=== PATIENT | male | born 1995 | race American Indian/Alaskan Native ===

== ENCOUNTER 2018-06-03 17:12 | Inpatient (IN) | payer OTHER ==
[2018-06-03 18:42] LABS: Hematocrit 50.8 % (35.5-45.6); Hemoglobin 16.6 gm/dl (11.8-15.2); Mean Corpuscular HGB Conc 33 % (32-34); Mean Corpuscular Hemoglobin 28 pg (28-32); Mean Corpuscular Volume 86 fl (84-94); Platelet Count 294 K/mm3 (140-440); Red Blood Count 5.89 M/mm3 (3.65-5.03); Red Cell Distribution Width 13.9 % (13.2-15.2)
[2018-06-03 18:58] LABS: BUN/Creatinine Ratio 13; Blood Urea Nitrogen 10 mg/dL (9-20); Calcium 10.1 mg/dL (8.4-10.2); Hemolysis Index 10
[2018-06-03] MEDS ORDERED: ZOFRAN IV ONE (23:16)
[2018-06-03] MEDS ORDERED: NACL 0.9% 1000 ML 1,000 ML IV ONE (23:16)
[2018-06-03] MEDS ORDERED: SUBLIMAZE IV ONE (23:16)
--- NOTE | 2018-06-03 23:17 | Emergency Department Report ---
ED Abdominal Pain HPI - General Chief Complaint: Abdominal Pain Stated Complaint: LOWER ABD PAIN Time Seen by Provider: 06/03/18 23:10 Source: patient, RN notes reviewed Mode of arrival: Ambulatory Limitations: No Limitations - History of Present Illness Initial Comments: This is a pleasant 22-year-old gentleman who was not known to this provider previously, who presents to the ER with a complaint of nontraumatic right lower quadrant abdominal pain. The patient has been present for 2-3 days. It is sharp, is radiating to the umbilicus, increases with palpation and decreases with rest. Denies urinary symptoms, and denies testicular pain. Reports nausea and heaving. Denies other complaints. Reports never having had pain like this before. MD Complaint: abdominal pain -: Gradual Radiation: RLQ, suprapubic Migration to: periumbilical Severity: moderate Quality: aching Consistency: intermittent Improves With: rest Worsens With: movement Associated Symptoms: denies other symptoms, nausea - Related Data Allergies Allergy/AdvReac Type Severity Reaction Status Date / Time No Known Allergies Allergy Unverified 06/03/18 17:27 ED Review of Systems ROS: Stated complaint: LOWER ABD PAIN Other details as noted in HPI Comment: All other systems reviewed and negative Constitutional: denies: fever Gastrointestinal: abdominal pain Genitourinary: denies: testicular pain ED Past Medical Hx - Past Medical History Previous Medical History?: No - Surgical History Past Surgical History?: No - Social History Smoking Status: Never Smoker Substance Use Type: None ED Physical Exam - General Limitations: No Limitations General appearance: alert, in no apparent distress - Head Head exam: Present: atraumatic, normocephalic - Eye Eye exam: Present: normal appearance, EOMI. Absent: nystagmus - ENT ENT exam: Present: normal exam, normal orophraynx, mucous membranes moist, normal external ear exam - Neck Neck exam: Present: normal inspection, full ROM. Absent: tenderness, meningismus - Respiratory Respiratory exam: Present: normal lung sounds bilaterally. Absent: respiratory distress - Cardiovascular Cardiovascular Exam: Present: regular rate, normal rhythm, normal heart sounds. Absent: bradycardia, tachycardia, irregular rhythm, systolic murmur, diastolic murmur, rubs, gallop - GI/Abdominal GI/Abdominal exam: Present: soft, tenderness (patient is tender and peritoneal, with voluntary guarding in the right lower quadrant), guarding. Absent: distended, pulsatile mass - Rectal Rectal exam: Present: deferred - exam: Present: normal inspection. Absent: testicular tenderness External exam: Present: normal external exam, other (there is no testicular tenderness. There is normal testicular lie bilaterally. There is normal cremasteric reflex bilaterally.) - Extremities Exam Extremities exam: Present: normal inspection, full ROM, normal capillary refill , other (2+ pulses noted in the bilateral upper, lower extremities. Compartments soft. No long bony tenderness. The pelvis is stable.). Absent: tenderness, pedal edema, joint swelling, calf tenderness - Back Exam Back exam: Present: normal inspection, full ROM. Absent: tenderness, CVA tenderness (R), paraspinal tenderness, vertebral tenderness - Neurological Exam Neurological exam: Present: alert, oriented X3, CN II-XII intact, other ( Extraocular movements intact. Tongue midline. No facial droop. Facial sensation intact to light touch in the V1, V2, V3 distribution bilaterally. 5 and 5 strength in 4 extremities.. Sensation is intact to light touch in 4 extremities.). Absent: motor sensory deficit - Psychiatric Psychiatric exam: Present: anxious - Skin Skin exam: Present: warm, dry, intact, normal color. Absent: rash ED Course Vital Signs 06/03/18 06/03/18 17:27 23:03 Temperature 98.2 F 98.1 F Pulse Rate 99 H 96 H Respiratory 18 18 Rate Blood Pressure 138/69 Blood Pressure 137/81 [Left] O2 Sat by Pulse 99 99 Oximetry - Reevaluation(s) Reevaluation #1: 06/03/18 23:36 Differential diagnosis, including but not limited to: Appendicitis, renal colic , inflammatory bowel disease Assessment and plan: 22-year-old male with right lower quadrant pain which is migratory and he is quite tender. I suspicion for appendicitis. He will be given IV fluids, pain medication, nausea medication. CT scan of the abdomen and pelvis is pending at this time. Reevaluation #2: 06/04/18 01:23 As expected, CT scan demonstrates appendicitis without perforation. Patient continues to decline pain medication at this time. Extensive discussion had with the patient regarding significance of diagnosis and need for admission for IV antibiotics and probable operative intervention. Patient is amenable to all of this. The general surgeon implementation specialist payroll is paged to arrange admission. Reevaluation #3: 06/04/18 01:32 Discussed with the general surgeon on-call, Dr. Iesha Osborn, who requests medical team to admit the patient, reports she will follow in consultation, and arrange surgical intervention early in the morning. Hospital physician is paged to arrange admission. Reevaluation #4: 06/04/18 01:42 Dr Werner accepted the patient to the medical service ED Medical Decision Making - Lab Data Result diagrams: 06/03/18 18:21 06/03/18 18:21 Vital Signs 06/03/18 06/03/18 17:27 23:03 Temperature 98.2 F 98.1 F Pulse Rate 99 H 96 H Respiratory 18 18 Rate Blood Pressure 138/69 Blood Pressure 137/81 [Left] O2 Sat by Pulse 99 99 Oximetry Lab Results 06/03/18 06/03/18 06/03/18 Range/Units 18:21 18:21 23:09 WBC 10.3 (4.5-11.0) K/mm3 RBC 5.89 H (3.65-5.03) M/mm3 Hgb 16.6 H (11.8-15.2) gm/dl Hct 50.8 H (35.5-45.6) % MCV 86 (84-94) fl MCH 28 (28-32) pg MCHC 33 (32-34) % RDW 13.9 (13.2-15.2) % Plt Count 294 (140-440) K/mm3 Sodium 141 (137-145) mmol/L Potassium 4.1 (3.6-5.0) mmol/L Chloride 99.1 (98-107) mmol/L Carbon Dioxide 25 (22-30) mmol/L Anion Gap 21 mmol/L BUN 10 (9-20) mg/dL Creatinine 0.8 (0.8-1.5) mg/dL Estimated GFR > 60 ml/min BUN/Creatinine Ratio 13 % Glucose 93 (75-100) mg/dL Calcium 10.1 (8.4-10.2) mg/dL Urine Color Yellow (Yellow) Urine Turbidity Clear (Clear) Urine pH 6.0 (5.0-7.0) Ur Specific [place] 1.032 H (1.003-1.030) Urine Protein 30 mg/dl (Negative) mg/dL Urine Glucose (UA) Neg (Negative) mg/dL Urine Ketones 20 (Negative) mg/dL Urine Blood Neg (Negative) Urine Nitrite Neg (Negative) Urine Bilirubin Neg (Negative) Urine Urobilinogen 2.0 (<2.0) mg/dL Ur Leukocyte Esterase Neg (Negative) Urine WBC (Auto) 1.0 (0.0-6.0) /HPF Urine RBC (Auto) 12.0 (0.0-6.0) /HPF Urine Mucus 3+ /HPF - Radiology Data Radiology results: report reviewed, image reviewed Critical care attestation.: If time is entered above; I have spent that time in minutes in the direct care of this critically ill patient, excluding procedure time. ED Disposition Clinical Impression: Acute appendicitis Disposition: 09 OP ADMIT IP TO THIS HOSP Is pt being admited?: Yes Condition: Good Referrals: PRIMARY CARE, [Primary Care Provider] - 3-5 Days
[2018-06-03 23:28] LABS: Bilirubin,Urine NEG (Negative); Blood,Urine NEG (Negative); Color,Urine Yellow (Yellow); Mucus,Urine 3+ /HPF
--- NOTE | 2018-06-04 01:16 | Cat Scan Report ---
FINAL REPORT EXAM: CT ABDOMEN PELVIS W CON HISTORY: rlq abd pain TECHNIQUE: Routine axial imaging was obtained of the abdomen and pelvis following the intravenous injection of 100 cc of Omnipaque 350. Delayed imaging was obtained through the kidneys ureters and bladder. Sagittal coronal reconstructions were reviewed. FINDINGS: The lung bases are clear. Pleural fluid is not seen. The liver, gallbladder, biliary tree, pancreas, spleen, and adrenal glands appear normal. The kidneys enhance normally. There is no evidence hydronephrosis. The abdominal aorta and vascular structures enhance normally. The bowel loops are normal in caliber and course. There is a nonspecific 2 cm calcification in the transverse colon. The bowel loops otherwise are unremarkable. There is fusiform enlargement of the appendix measuring 16.6 mm in diameter with periappendiceal edema compatible with acute appendicitis. There is no evidence of perforation or abscess. There minimal free fluid in the deep pelvis. The prostate gland and bladder appear normal. The skeletal structures appear well maintained. IMPRESSION: Acute appendicitis. No evidence of perforation or abscess. Minimal free fluid in the deep pelvis.
[2018-06-04] MEDS ORDERED: ZOSYN/NS 4.5GM/100ML 4.5 GM/100 ML VIAL IV ONE (01:23)
[2018-06-04] MEDS ORDERED: ZOFRAN IV PRN (02:35)
[2018-06-04] MEDS ORDERED: TYLENOL PO PRN (02:35)
[2018-06-04] MEDS ORDERED: SODIUM CHLORIDE FLUSH SYRINGE 10 ML IV PRN (02:35)
--- NOTE | 2018-06-04 05:08 | History and Physical Report ---
History of Present Illness Date of examination: 06/04/18 Date of admission: 06/04/18 02:35 History of present illness: 89year-old man with a no medical history comes to emergency room with complaint of abdominal pain located in the right lower quadrant that started 2 weeks ago. he described the pain as sharp, constant, intensity 7/10, radiating to the mid abdomen and also associated with abdominal cramping, cannot identify exacerbating or relieving factors. Admits to nausea vomiting, no fever Review of systems Constitutional: no weight loss, chills, fever Ears, eyes, nose, mouth and throat: no nasal congestion, no nasal discharge, no sinus pressure, no vision change, no red eye. Neck: No neck pain or rigidity. Cardiovascular: no chest pain, palpitations Respiratory: no cough, shortness of breath Gastrointestinal: no hematochezia Genitourinary : no frequency , no hematuria Musculoskeletal: no joint swelling or muscle ache Integumentary: no rash, no pruritis Neurological: no parathesias, no numbness, no focal weakness Endocrine: no cold or heat intolerance, no polyuria or polydipsia Hematologic/Lymphatic: no easy bruising, no easy bleeding, no gland swelling Allergic/Immunologic: no urticaria, no angioedema PAST MEDICAL HISTORY none PAST SURGICAL HISTORY: none SOCIAL HISTORY: No alcohol, no drugs, tobacco FAMILY HISTORY: Hypertension Medications and Allergies Allergies Allergy/AdvReac Type Severity Reaction Status Date / Time No Known Allergies Allergy Unverified 06/03/18 17:27 Active Meds: Active Medications Acetaminophen (Tylenol) 650 mg PO Q4H PRN PRN Reason: Pain MILD(1-3)/Fever >100.5/PATEL Enoxaparin Sodium (Lovenox) 40 mg SUB-Q QDAY KRYSTAL Sodium Chloride (Nacl 0.9% 1000 Ml) 1,000 mls @ 100 mls/hr IV DIRECT KRYSTAL Morphine Sulfate (Morphine) 2 mg IV Q4H PRN PRN Reason: Pain, Moderate (4-6) Ondansetron HCl (Zofran) 4 mg IV Q4H PRN PRN Reason: Nausea And Vomiting Sodium Chloride (Sodium Chloride Flush Syringe 10 Ml) 10 ml IV BID KRYSTAL Sodium Chloride (Sodium Chloride Flush Syringe 10 Ml) 10 ml IV PRN PRN PRN Reason: LINE FLUSH Exam - Physical Exam Narrative exam: Gen. appearance: Patient lying in bed, no apparent distress HEENT: Normocephalic, atraumatic, pupils equally round and reactive to light, extraocular movement intact, and no sclericterus,. No JVD or thyromegaly or nodule,neck supple, no carotid bruit ,mucous membranes moist, no exudate or erythema Heart: S1, S2, regular rate and rhythm Lungs: Clear bilaterally, breathing comfortable Abdomen: Positive bowel sounds, tender in the right lower quadrant, nondistended , no organomegaly Extremity:no edema cyanosis, clubbing Skin: no rash, dry, warm Neuro: Oriented 3, cranial nerves II-12 intact, speech is fluent, motor and sensory intact - Constitutional Vitals: Temp Pulse Resp BP Pulse Ox 98.1 F 96 H 18 137/81 99 06/03/18 23:03 06/03/18 23:03 06/03/18 23:03 06/03/18 23:03 06/03/18 23:03 Results - Labs CBC & Chem 7: 06/03/18 18:21 06/03/18 18:21 Labs: Abnormal lab results 06/03/18 06/03/18 Range/Units 18:21 23:09 RBC 5.89 H (3.65-5.03) M/mm3 Hgb 16.6 H (11.8-15.2) gm/dl Hct 50.8 H (35.5-45.6) % Ur Specific [place] 1.032 H (1.003-1.030) Assessment and Plan Assessment Acute appendicitis Plan Admit to medicine Nothing by mouth, IV fluids, IV Zosyn, IV pain medication Consults surgery, DVT prophylaxis
[2018-06-04] MEDS: NACL 0.9% 1000 ML 1,000 ML IV SCH (06:28)
--- NOTE | 2018-06-04 09:48 | Consultation ---
History of Present Illness Consult date: 06/04/18 Chief complaint: abdominal pain, anorexia - History of present illness History of present illness: 22 yo M with no PMHx presents with c/o RLQ pain for several weeks. It has been dull and has not limited the patients everyday activity or eating. However, it has intensified in the last 24 hours, is sharp, and severe. It radiates from the RLQ to the mid abdomen. Pain has improved since being in the hospital. No f/ c, cp, sob, n/v. He has not had a very good appetite over the last week or so. No dysuria. Last meal was >24 hours ago. No sick contacts. Patient's mother and aunt at bedside. Past History Past Medical History: No medical history Past Surgical History: No surgical history Social history: no significant social history Family history: no significant family history Medications and Allergies Allergies Allergy/AdvReac Type Severity Reaction Status Date / Time No Known Allergies Allergy Unverified 06/03/18 17:27 Active Meds: Active Medications Acetaminophen (Tylenol) 650 mg PO Q4H PRN PRN Reason: Pain MILD(1-3)/Fever >100.5/PATEL Enoxaparin Sodium (Lovenox) 40 mg SUB-Q QDAY KRYSTAL Sodium Chloride (Nacl 0.9% 1000 Ml) 1,000 mls @ 100 mls/hr IV DIRECT KRYSTAL Last Admin: 06/04/18 06:28 Dose: 100 mls/hr Morphine Sulfate (Morphine) 2 mg IV Q4H PRN PRN Reason: Pain, Moderate (4-6) Ondansetron HCl (Zofran) 4 mg IV Q4H PRN PRN Reason: Nausea And Vomiting Sodium Chloride (Sodium Chloride Flush Syringe 10 Ml) 10 ml IV BID KRYSTAL Sodium Chloride (Sodium Chloride Flush Syringe 10 Ml) 10 ml IV PRN PRN PRN Reason: LINE FLUSH Review of Systems All systems: negative (10 pt ROS performed and negative except for that listed in HPI) Exam Vital Signs Temp Pulse Resp BP Pulse Ox 98.2 F 99 H 18 138/69 99 06/03/18 17:27 06/03/18 17:27 06/03/18 17:27 06/03/18 17:27 06/03/18 17:27 Narrative exam: Gen: AAOx3. NAD. well nourished ENT: no scleral icterus or conjunctival pallor CV: S1, S2+, no m/r/g Resp: CTAB, no w/r/r Abd: soft, ND, + RLQ TTP with guarding. No rebound or rigidity Ext; no c/c/e Results - Labs 06/03/18 18:21 06/03/18 18:21 Abnormal lab results 06/03/18 06/03/18 Range/Units 18:21 23:09 RBC 5.89 H (3.65-5.03) M/mm3 Hgb 16.6 H (11.8-15.2) gm/dl Hct 50.8 H (35.5-45.6) % Ur Specific [place] 1.032 H (1.003-1.030) Diabetes panel 06/03/18 Range/Units 18:21 Sodium 141 (137-145) mmol/L Potassium 4.1 (3.6-5.0) mmol/L Chloride 99.1 (98-107) mmol/L Carbon Dioxide 25 (22-30) mmol/L BUN 10 (9-20) mg/dL Creatinine 0.8 (0.8-1.5) mg/dL Glucose 93 (75-100) mg/dL Calcium 10.1 (8.4-10.2) mg/dL Calcium panel 06/03/18 Range/Units 18:21 Calcium 10.1 (8.4-10.2) mg/dL Pituitary panel 06/03/18 Range/Units 18:21 Sodium 141 (137-145) mmol/L Potassium 4.1 (3.6-5.0) mmol/L Chloride 99.1 (98-107) mmol/L Carbon Dioxide 25 (22-30) mmol/L BUN 10 (9-20) mg/dL Creatinine 0.8 (0.8-1.5) mg/dL Glucose 93 (75-100) mg/dL Calcium 10.1 (8.4-10.2) mg/dL Adrenal panel 06/03/18 Range/Units 18:21 Sodium 141 (137-145) mmol/L Potassium 4.1 (3.6-5.0) mmol/L Chloride 99.1 (98-107) mmol/L Carbon Dioxide 25 (22-30) mmol/L BUN 10 (9-20) mg/dL Creatinine 0.8 (0.8-1.5) mg/dL Glucose 93 (75-100) mg/dL Calcium 10.1 (8.4-10.2) mg/dL - Imaging CT scan - abdomen: report reviewed, image reviewed CT scan - pelvis: report reviewed, image reviewed Assessment and Plan 22yo M with acute appendicitis, dehydration Plan: 1. NPO 2. IVF - increase to NS@125cc/hr 3. IV abx - one dose zosyn given in ER, will continue zosyn IV 4. DVT ppx - on lovenox 5. prn pain control - morphine IV 6. For OR today for laparoscopic, possible open, appendectomy. I discussed all risks, benefits, and alternatives to surgery with the patient and his family at the bedside. All questions were answered and consent obtained. Thank you for this consultation, please call with questions or concerns.
[2018-06-04] MEDS ORDERED: LOVENOX SUB-Q SCH ×2 (10:00→22:00)
[2018-06-04] MEDS ORDERED: VERSED IV NR (14:32)
[2018-06-04] MEDS ORDERED: LACTATED RINGERS 1,000 ML IV SCH (14:32)
[2018-06-04] MEDS ORDERED: PEPCID IV NR (14:34)
[2018-06-04] MEDS ORDERED: PEPCID IV ONE (14:37)
[2018-06-04] MEDS ORDERED: DILAUDID ONE (15:14)
[2018-06-04] MEDS ORDERED: DIPRIVAN 10 MG/ML IV ONE (15:15)
[2018-06-04] MEDS ORDERED: XYLOCAINE MPF 2% ONE (15:16)
[2018-06-04] MEDS ORDERED: ZEMURON IV ONE (15:16)
[2018-06-04] MEDS ORDERED: QUELICIN ONE (15:16)
[2018-06-04] MEDS ORDERED: MARCAINE 0.25% INFILTRATI ONE ×2 (15:24→15:39)
[2018-06-04] MEDS ORDERED: TORADOL ONE (15:51)
[2018-06-04] MEDS ORDERED: ZOFRAN ONE (15:51)
[2018-06-04] MEDS ORDERED: BLOXIVERZ ONE (15:51)
[2018-06-04] MEDS ORDERED: DECADRON ONE (15:51)
[2018-06-04] MEDS ORDERED: ROBINUL ONE (15:51)
[2018-06-04] MEDS ORDERED: NORCO 5/325 PO PRN (17:00)
--- NOTE | 2018-06-04 17:12 | Operative Report ---
Operative Report Operative Report: Date of operation: 06/04/18 Preoperative diagnosis: acute appendicitis Postoperative diagnosis: acute appendicitis Procedure performed: Laparoscopic appendectomy Surgeon: Irasema Osborn DO Anesthesia: GETA, local Findings: very long thickened and dilated appendix, retrocecal EBL: 20cc Specimen: appendix Disposition/Condition: stable to PACU HPI and indication: 22 yo M presented to ER with RLQ pain, anorexia. He was found to have acute appendicitis on CT scan. He was started on antibiotics, IVF , and pain medication. Appendectomy was recommended. All risks, benefits, and alternatives of surgery were discussed with the patient, all questions answered , and consent signed. Procedure in detail: Patient was identified in the preop area and taken back to the OR and placed on the OR table in supine position. After anesthesia was induced a jacobs catheter was placed by the circulating nurse in sterile fashion. The abdomen was prepped and draped in sterile fashion and a time out was performed. Local anesthetic 0.25% Marcaine was infilitrated into all skin incision sites. A supraumbilical incision was made using a 11 blade and veress needle inserted through this incision. The positioning of the veress needle was confirmed using the saline drop test. The abdomen was then insufflated to 15mmHg. The veress needle was withdrawn and a 5mm Optiview trocar was placed. The abdomen was inspected and no underlying injury to the abdominal structures was identified. A 5mm trocar suprapubic and a 12 mm LLQ trocar were placed under direct visualization. The ileocecal junction was identified. The cecum was rotated medially and the appendix was visualized and was in the retrocecal position. The appendix extended from the RLQ to the RUQ and was thickened, dilated, and inflamed. It was adhered to the the lateral abdominal wall with thickened peritoneal adhesions. These adhesions were taken down using the harmonic scalpel until the mesentery of the appendix was identified. The appendix was retracted towards the abdominal wall and the mesentery ligated using the harmonic scalpel. Dense adhesions from the lateral abdominal wall and retroperitoneum to the base of the appendix and cecum were carefully dissected using the harmonic scalpel until the base of the appendix was clearly identified. The base of the appendix was transected using an ethicon flex stapler 45mm white load. The appendix was placed into an endocatch bag and removed via the 12 mm port. This was passed off the table as specimen. The staple line and mesentery were then inspected and no bleeding visualized. The wound bed was meticulously inspected and no bleeding seen. The remainder of the abdomen was inspected and was unremarkable. The 12 mm port fascia was closed using a single interrupted 0-vicryl stitch using the Daniel Lawrence device. The remaining ports were removed under direct visualization and the abdomen desufflated. All skin incisions were closed using 4-0 monocryl subcuticular stitches and skin glue. All skin incisions were once again infiltrated with local anesthetic. At the end of the case, all sponge, instrument, sharp counts were correct x2. The patient was awoken from anesthesia, jacobs catheter removed, and he was taken to PACU in stable condition.
--- NOTE | 2018-06-04 17:15 | Post Anesthesia Evaluation ---
- Post Anesthesia Evaluation Patient Participated: Yes Airway Patent: Yes Stable Respiratory Function: Yes Nausea/Vomiting: No Temp > 96.8F: Yes Pain Manageable: Yes Adequeate Hydration: Yes Anesthesia Complications: No
--- NOTE | 2018-06-04 18:01 | Progress Note ---
Hospitalist Physical - Constitutional Vitals: Temp Pulse Resp BP Pulse Ox 97.5 F L 73 18 115/57 100 06/04/18 17:06 06/04/18 17:15 06/04/18 17:15 06/04/18 17:15 06/04/18 17:15 Results - Labs CBC & Chem 7: 06/03/18 18:21 06/03/18 18:21 Labs: Laboratory Last Values WBC 10.3 K/mm3 (4.5-11.0) 06/03/18 18:21 RBC 5.89 M/mm3 (3.65-5.03) H 06/03/18 18:21 Hgb 16.6 gm/dl (11.8-15.2) H 06/03/18 18:21 Hct 50.8 % (35.5-45.6) H 06/03/18 18:21 MCV 86 fl (84-94) 06/03/18 18:21 MCH 28 pg (28-32) 06/03/18 18:21 MCHC 33 % (32-34) 06/03/18 18:21 RDW 13.9 % (13.2-15.2) 06/03/18 18:21 Plt Count 294 K/mm3 (140-440) 06/03/18 18:21 Sodium 141 mmol/L (137-145) 06/03/18 18:21 Potassium 4.1 mmol/L (3.6-5.0) 06/03/18 18:21 Chloride 99.1 mmol/L (98-107) 06/03/18 18:21 Carbon Dioxide 25 mmol/L (22-30) 06/03/18 18:21 Anion Gap 21 mmol/L 06/03/18 18:21 BUN 10 mg/dL (9-20) 06/03/18 18:21 Creatinine 0.8 mg/dL (0.8-1.5) 06/03/18 18:21 Estimated GFR > 60 ml/min 06/03/18 18:21 BUN/Creatinine Ratio 13 % 06/03/18 18:21 Glucose 93 mg/dL (75-100) 06/03/18 18:21 Calcium 10.1 mg/dL (8.4-10.2) 06/03/18 18:21 Urine Color Yellow (Yellow) 06/03/18 23:09 Urine Turbidity Clear (Clear) 06/03/18 23:09 Urine pH 6.0 (5.0-7.0) 06/03/18 23:09 Ur Specific [place] 1.032 (1.003-1.030) H 06/03/18 23:09 Urine Protein 30 mg/dl mg/dL (Negative) 06/03/18 23:09 Urine Glucose (UA) Neg mg/dL (Negative) 06/03/18 23:09 Urine Ketones 20 mg/dL (Negative) 06/03/18 23:09 Urine Blood Neg (Negative) 06/03/18 23:09 Urine Nitrite Neg (Negative) 06/03/18 23:09 Urine Bilirubin Neg (Negative) 06/03/18 23:09 Urine Urobilinogen 2.0 mg/dL (<2.0) 06/03/18 23:09 Ur Leukocyte Esterase Neg (Negative) 06/03/18 23:09 Urine WBC (Auto) 1.0 /HPF (0.0-6.0) 06/03/18 23:09 Urine RBC (Auto) 12.0 /HPF (0.0-6.0) 06/03/18 23:09 Urine Mucus 3+ /HPF 06/03/18 23:09
--- NOTE | 2018-06-04 18:06 | Event Note ---
Date: 06/04/18 Patient with acute appendicitis s/p appendectomy today, by Dr. Osborn
[2018-06-04] MEDS: MORPHINE IV PRN (19:08)
[2018-06-04] MEDS: SODIUM CHLORIDE FLUSH SYRINGE 10 ML IV SCH ×2 (21:16→22:06)
[2018-06-04] MEDS: ZOSYN/NS 4.5GM/100ML 4.5 GM/100 ML VIAL IV SCH ×2 (22:00→22:07)
[2018-06-05] MEDS: NACL 0.9% 1000 ML 1,000 ML IV SCH (04:38)
[2018-06-05] MEDS: MORPHINE IV PRN (05:18)
[2018-06-05] MEDS: ZOSYN/NS 4.5GM/100ML 4.5 GM/100 ML VIAL IV SCH (05:22)
--- NOTE | 2018-06-05 10:16 | Progress Note ---
Assessment and Plan 22yo M s/p laparoscopic appendectomy, POD 1 Plan: 1. reg diet 2. dc abx 3. dc IVF 4. prn PO pain control 5. OOB/ambulate 6. IS/pulm toilet 7. ok to DC home from surgery standpoint. Lortab script on chart along with DC instructions. Pt to follow up in surgery office in 2 weeks. D/W Dr. Cox Subjective Date of service: 06/05/18 Narrative: Pt seen and examined. No overnight events. Tolerating regular diet. Pain only at incision sides, soreness, controlled with pain medications. No n/v, f/c. Ambulating and urinating on his own. Objective Vital Signs - 12hr 06/05/18 06/05/18 06/05/18 00:29 04:40 07:29 Temperature 98.9 F 98.2 F 98.3 F Pulse Rate 93 H 75 80 Respiratory 20 20 18 Rate Blood Pressure 122/56 115/59 Blood Pressure 109/48 [Left] O2 Sat by Pulse 96 100 99 Oximetry - General physical appearance Narrative Exam: Gen: AAOx3. NAD CV: S1, S2+ Resp: even and unlabored Abd: soft, ND, mild TTP near incisions. Incisions c/d/i. no r/r/g Ext: no c/c/e - Labs 06/03/18 18:21 06/03/18 18:21
--- NOTE | 2018-06-05 10:42 | Discharge Summary ---
Providers - Providers Date of Admission: 06/04/18 02:35 Date of discharge: 06/05/18 Attending physician: DEWAYNE KAT 06/04/18 01:23 Consult to Physician [CONS] Urgent Comment: Dr. Foy spoke with Dr. Wallace @ [phone] Consulting Provider: CINDY WALLACE Physician Instructions: Reason For Exam: appendicitis Primary care physician: EDUCATION SUPERVISOR Hospitalization Condition: Good Disposition: DC-01 TO HOME OR SELFCARE Core Measure Documentation - Palliative Care Palliative Care/ Comfort Measures: Not Applicable - Core Measures Any of the following diagnoses?: none Exam - Constitutional Vitals: Temp Pulse Resp BP Pulse Ox 98.3 F 80 18 109/48 99 06/05/18 07:29 06/05/18 07:29 06/05/18 07:29 06/05/18 07:29 06/05/18 07:29 Plan Diet: other (GI soft diet) Additional Instructions: 1.Follow up with PCP or [facility] in 1 week. 2.Follow up with Dr. Wallace in 2 weeks. 3.Can return to school on Sun. 4.No strenous activity unless cleared by Dr. Wallace Follow up with: CINDY WALLACE DO [Staff Physician] - 14 Days PRIMARY CARE,MD [Primary Care Provider] - 3-5 Days Prescriptions: HYDROcodone/ACETAMINOPHEN [Lortab 10 mg-300 mg per 15 ML ORAL LIQ] 15 ml PO Q6H PRN 3 Days #180 ml PRN Reason: Pain , Severe (7-10)
[2018-06-05 11:44] VITALS: BP 125/70
== END 2018-06-05 13:24 | disposition home or self-care (01) | DRG 343 ==
LOC: ED 17:12 → 3B-SURG 06-04 02:35
PROVIDERS: ADMIT Internal Medicine; ATTEND Internal Medicine
PROC: 0DTJ4ZZ Resection of Appendix, Percutaneous Endoscopic Approach (ICD-10-PCS; principal; 2018-06-04)
DX: K35.80 Unspecified acute appendicitis (principal); E86.0 Dehydration; Z82.49 Family history of ischemic heart disease and other diseases of the circulatory system
CPT/HCPCS: 36415; 74177; 80048; 81001; 85027; 88304; 96361; 96365; J0330; J1100; J1170; J1650; J1885; J2250; J2270; J2405; J2543; J2704; J2710; J3010; J7030; J7120; Q9967